=== PATIENT | female | born 1985 | race African-American/Black ===

== ENCOUNTER 2017-09-12 22:55 | Emergency (ER) | payer OTHER | END 2017-09-13 00:19 | disposition home or self-care (01) | LOC: SCSER 22:55 | DX: K62.89 Other specified diseases of anus and rectum (principal); D64.9 Anemia, unspecified; I10 Essential (primary) hypertension; F41.9 Anxiety disorder, unspecified; F32.9 Major depressive disorder, single episode, unspecified | CPT/HCPCS: 99283 ==